=== PATIENT | female | born 1975 | race Caucasian/White ===

== ENCOUNTER 2021-11-11 15:06 | Emergency (ER) | payer SELFPAY ==
[2021-11-11 15:24] VITALS: BP 144/77
--- NOTE | 2021-11-13 13:16 | Electrocardiograph Report ---
[facility] Test Date: 2021-11-11 Test Time: 15:23:50 Pat Name: KANNAN PEREIRA Department: Room: Gender: F Motion Picture Director: TECH : 1975 Requested By: BETTY CEDEÑO Order Number: [id number] Reading MD: Tila Moore Measurements Intervals [place] Rate: 78 P: 42 AL: 150 QRS: 47 QRSD: 93 T: 35 QT: 403 QTc: 459 Interpretive Statements Sinus rhythm No previous ECG available for comparison Electronically Signed On 11-13-2021 13:16:26 EDT by Tila Moore
== END 2021-11-11 21:40 | disposition left against medical advice (07) ==
LOC: ED 15:06
DX: R07.89 Other chest pain (principal); Z53.21 Procedure and treatment not carried out due to patient leaving prior to being seen by health care provider
CPT/HCPCS: 93005